=== PATIENT | female | born 1960 | race Caucasian/White ===

== ENCOUNTER → 2016-06-30 | Outpatient (CLI) | payer OTHER ==
--- NOTE | 2016-06-30 16:23 | MA ---
Screening Digital Mammogram With iCAD Analysis Reason for Examination: Routine screening. Her paternal grandmother was diagnosed with breast cancer in her 50s. Breast parenchymal density: Type B; Scattered fibroglandular densities. Technique: Four views of each breast are obtained including CC and oblique lateral Ayana (implant di splaced) and non-Ayana (implant not displaced) views. Images were reviewed using the iCAD computer a ided detection system. Comparison: February 2015, March 2012, March 2010. Findings: Breast implants are in place bilaterally. iCAD is reviewed. No suspicious areas are identif ied. There has been no significant change in the appearance of either breast. Breast implants diminis h the sensitivity of mammography. Impression: Negative mammogram. BI-RADS 1. Recommendation: Routine screening is recommended in one year as long as physical examination is negat junaid. [facility] will send a result letter to the patient. Negative mammography should not preclude additional workup of a clinically suspicious finding. The patient's information is entered into a reminder system with a target due date for her next mammo gram.
== END ==
LOC: CIMAGING 14:14
DX: Z12.31 Encounter for screening mammogram for malignant neoplasm of breast (principal); Z80.3 Family history of malignant neoplasm of breast
CPT/HCPCS: G0202

== ENCOUNTER → 2018-03-18 | Outpatient (CLI) | payer OTHER | LOC: BRMIMAGING 13:48 | DX: Z12.31 Encounter for screening mammogram for malignant neoplasm of breast (principal) ==